=== PATIENT | female | born 1990 | race Caucasian/White ===

== ENCOUNTER → 2016-11-01 | Outpatient (CLI) | payer BC ==
[~2016-11-01] MED LIST: BCPILLS PO
--- NOTE | 2016-11-01 15:24 | DIAGNOSTIC IMAGING REPORT ---
NASAL BONES MIN 3 VIEWS CLINICAL HISTORY: 26 years-old Female presenting with BROKEN NOSE, karate injury. TECHNIQUE: Frontal and right and left lateral views of the nasal bones were obtained. COMPARISON: None. FINDINGS: Paranasal sinuses clear. Bony orbits normal. No displaced nasal bone fracture. No deviation of the osseous nasal septum. No displaced fracture of the vomer. IMPRESSION: No displaced fracture of the nasal bones. Electronically signed by: Avelino Benson M.D. 11/01/2016 3:23 PM Dictated Date/Time: 11/01/2016 3:21 PM
== END | disposition home or self-care (01) ==
LOC: C.RAD1850 14:59
PROVIDERS: ATTEND Family Medicine
DX: S02.2XXA Fracture of nasal bones, initial encounter for closed fracture (principal); X58.XXXA Exposure to other specified factors, initial encounter